=== PATIENT | female | born 1940 | race Caucasian/White ===

== ENCOUNTER → 2016-11-22 | Outpatient (REF) | payer MEDICARE, OTHER ==
[2016-11-22 11:01] LABS: BASOPHILS % (AUTO) 0 % (0-2); EOSINOPHILS # (AUTO) 0.4 10^3uL; EOSINOPHILS % (AUTO) 4 % (0-4); LYMPHOCYTES # (AUTO) 2.6 X10^3; MEAN CORPUSCULAR HGB CONC 32.9 g/dL (31.0-37.0); MEAN CORPUSCULAR VOLUME 80 FL (80-100); MONOCYTES # (AUTO) 0.6 X10^3; MONOCYTES % (AUTO) 6 % (3-11); NEUTROPHILS # (AUTO) 6.1 X10^3; NEUTROPHILS % (AUTO) 63 % (51-67); PLATELET COUNT 249 10^3uL (150-450); WHITE BLOOD COUNT 9.76 10^3uL (4.0-11.0)
[2016-11-22 11:05] LABS: ANION GAP 17.7 MEQ/L (3-15); CALCULATED IONIZED CALCIUM 4.6 mg/dL (3.8-4.6); TOTAL PROTEIN 6.9 g/dL (6.4-8.5)
[2016-11-22 11:06] LABS: ALBUMIN 4.5 g/dL (3.4-5.0)
[2016-11-22 11:16] LABS: MEAN CORPUSCULAR HEMOGLOBIN 26.4 PG (26.0-34.0)
== END ==
LOC: LAB 10:11
PROVIDERS: ATTEND Internal Medicine
DX: Z00.00 Encounter for general adult medical examination without abnormal findings (principal); E11.9 Type 2 diabetes mellitus without complications; I10 Essential (primary) hypertension; F32.89 Other specified depressive episodes
CPT/HCPCS: 80053; 80061; 82043; 82306; 83036; 84443; 85025

== ENCOUNTER → 2016-12-16 | Outpatient (CLI) | payer MEDICARE, OTHER ==
[2016-12-16 18:59] VITALS: BP 128/62
== END ==
LOC: MHUC 18:15
PROVIDERS: ATTEND Nurse Practitioner
DX: J06.9 Acute upper respiratory infection, unspecified (principal)
CPT/HCPCS: 99213

== ENCOUNTER → 2016-12-20 | Outpatient (CLI) | payer MEDICARE, OTHER ==
[2016-12-20 16:46] LABS: BASOPHILS % (AUTO) 0 % (0-2); EOSINOPHILS # (AUTO) 0.4 10^3uL; EOSINOPHILS % (AUTO) 5 % (0-4); LYMPHOCYTES # (AUTO) 2.1 X10^3; MEAN CORPUSCULAR HGB CONC 33.8 g/dL (31.0-37.0); MEAN PLATELET VOLUME 9.2 FL (6.0-9.5); MONOCYTES # (AUTO) 0.9 X10^3; MONOCYTES % (AUTO) 13 % (3-11); NEUTROPHILS # (AUTO) 3.6 X10^3; NEUTROPHILS % (AUTO) 52 % (51-67); PLATELET COUNT 230 10^3uL (150-450); WHITE BLOOD COUNT 6.98 10^3uL (4.0-11.0)
[2016-12-20 16:48] LABS: MEAN CORPUSCULAR HEMOGLOBIN 26.3 PG (26.0-34.0); MEAN CORPUSCULAR VOLUME 78 FL (80-100)
[2016-12-20 17:39] LABS: ANION GAP 15.5 MEQ/L (3-15)
== END ==
LOC: LAB 16:32
PROVIDERS: ATTEND Internal Medicine
DX: R05 Cough (principal); E11.9 Type 2 diabetes mellitus without complications; I10 Essential (primary) hypertension
CPT/HCPCS: 36415; 71020; 80048; 84450; 85025; 86140

== ENCOUNTER → 2017-01-16 | Outpatient (CLI) | payer MEDICARE, OTHER ==
[~2017-01-16] VITALS: Ht 165.1 cm; Wt 68.0 kg
[~2017-01-16] MED LIST: ZOLEDRONIC ACID 5 MG/100 ML 100 ML IV ONE
[2017-01-16 14:16] VITALS: BP 121/65
--- NOTE | 2017-01-16 14:50 | NUR ---
Reclast started via IV at 1415, ended and scanned at 1450
== END ==
LOC: EUOP 13:57
PROVIDERS: ATTEND Internal Medicine
DX: M81.0 Age-related osteoporosis without current pathological fracture (principal)
CPT/HCPCS: 96365; J3489; 36000

== ENCOUNTER → 2017-01-18 | Outpatient (CLI) | payer MEDICARE, OTHER ==
[~2017-01-18] MED LIST changes: -ZOLEDRONIC ACID 5 MG/100 ML 100 ML IV ONE; +methylPREDNISolone 80 MG/ML (DEPO MEDROL) VIAL IM ONE
== END ==
LOC: PMC 11:00
PROVIDERS: ATTEND Internal Medicine
DX: M51.26 Other intervertebral disc displacement, lumbar region (principal); M47.896 Other spondylosis, lumbar region; I11.0 Hypertensive heart disease with heart failure; I50.9 Heart failure, unspecified; J44.9 Chronic obstructive pulmonary disease, unspecified; E11.9 Type 2 diabetes mellitus without complications
CPT/HCPCS: 62323; J1040

== ENCOUNTER → 2017-01-31 | Outpatient (REF) | payer MEDICARE, OTHER | LOC: LAB 13:59 | PROVIDERS: ATTEND Internal Medicine | DX: M81.0 Age-related osteoporosis without current pathological fracture (principal) | CPT/HCPCS: 82306 ==

== ENCOUNTER 2017-02-06 14:04 | Emergency (ER) | payer MEDICARE, OTHER ==
[~2017-02-06] VITALS: Ht 162.6 cm; Wt 72.0 kg
[2017-02-06] MEDS ORDERED: ONDANSETRON 4 MG (ZOFRAN) ORAL DISSOLVE TAB PO ONE (15:15)
[2017-02-06] MEDS ORDERED: HYDROmorphone 1 MG/ML (DILAUDID) SYRINGE IM ONE (15:15)
[2017-02-06 15:58] VITALS: BP 107/47
== END 2017-02-06 15:50 | disposition home or self-care (01) ==
LOC: ED 14:12
DX: S83.8X2A Sprain of other specified parts of left knee, initial encounter (principal); X50.9XXA Other and unspecified overexertion or strenuous movements or postures, initial encounter; Y93.E1 Activity, personal bathing and showering; Y92.002 Bathroom of unspecified non-institutional (private) residence as the place of occurrence of the external cause
CPT/HCPCS: 73502; 73562; 96372; 99283; A9270; J1170

== ENCOUNTER → 2017-03-28 | Outpatient (REF) | payer MEDICARE, OTHER ==
[~2017-03-28] MED LIST changes: +AC325T PO; +AC500T PO; +ACC200C PO; +ACYC400T PO; +ALB0.5V IH; +ALBU2.5V4 IH; +ALBU6.7H INH; +ALN10T PO; +ASP81CT PO; +ASPI-860 PO; +CALC-172 PO; +CALC-72 PO; +CALC-84 PO; +CEFD300C PO; +CHOL500049 PO; +CIPR-273 PO; +CIPR500S2 PO; +CLOP75TA3 PO; +CYAN10006 PO; +CYAN10007 PO; +CYCL10TA45 PO; +CYCL5TAB PO; +DILT180C81 PO; +DILT180C9 PO; +DIVA250T4 PO; +DOCU100C8 PO; +DOXY100T41 PO; +DUONEB 0.5 MG-33 ML IH; +ERGO500037 PO; +FENO145T2 PO; +FLUT1DIS3 IH; +FURO-125 PO; +GABA300C PO; +GBPN100C PO; +HYDR-2997 PO; +HYDR-3702 PO; +HYDR-3708; +HYDR-3881 PO; +INSU100I23 SC; +INSU100I23 SQ; +INSU100I9 SC; +INSU100V2 SQ; +INSU100V32 SC; +INSU100V32 SQ; +LANTUS SOL100 UNIT/1 SQ; +LD5PT TOP; +LEVO500T16 PO; +LEVO750T39 PO; +LIPA1CAP; +LIPA1CAP PO; +LOPE2TAB17 PO; +LORA-404 PO; +LORA0.5T PO; +LORA1TAB PO; +LRT10T PO; +MAGN400O7 PO; +MECL-115 PO; +MELA1TAB10 PO; +METAMUCIL POWD283 GM PO; +METO25TA2 PO; +MUCINEX PO; +NITR0.4T SL; +NITR0.4T7 SL; +NITR100C PO; +NITR100C3 PO; +NTR.4SL SL; +ONDA4TAB8 PO; +ONDAN4ODT PO; +ONDN4T PO; +ORPH100T PO; +OXYC1TAB6 PO; +OXYC1TAB87 PO; +PAMI30VI8 SC; +PAMI30VI8 SQ; +PANT40TA2 PO; +PANT40TA3 PO; +PHEN30TA37 PO; +POLY17PO2 PO; +POTA10CA43 PO; +POTA10TA6 PO; +PRAM0.12 PO; +PRAM0.373 PO; +PRM25T PO; +PROM25SU10 PR; +PSYL0.5211 PO; +ROSU10TA PO; +SERT50TA2 PO; +SPIR25TA PO; +SPIR50TA PO; +SPRN25T PO; +TIOT18CA IH; +TRAM-25 PO; +TRAM-291ED; +TRM50T PO; +VIT B-12 PO; +[UNRECOGNIZED DRUG - CODE] PO; +[UNRECOGNIZED DRUG - CODE] PO; +[UNRECOGNIZED DRUG - CODE] PO; +[UNRECOGNIZED DRUG - CODE] PO; +[UNRECOGNIZED DRUG - CODE] PO; -methylPREDNISolone 80 MG/ML (DEPO MEDROL) VIAL IM ONE
[2017-03-28 11:29] LABS: BASOPHILS % (AUTO) 0 % (0-2); EOSINOPHILS # (AUTO) 0.4 10^3uL; EOSINOPHILS % (AUTO) 4 % (0-4); LYMPHOCYTES # (AUTO) 2.1 X10^3; MEAN CORPUSCULAR VOLUME 82 FL (80-100); MEAN PLATELET VOLUME 9.7 FL (6.0-9.5); MONOCYTES # (AUTO) 0.5 X10^3; MONOCYTES % (AUTO) 6 % (3-11); NEUTROPHILS # (AUTO) 6.2 X10^3; NEUTROPHILS % (AUTO) 67 % (51-67); PLATELET COUNT 284 10^3uL (150-450); WHITE BLOOD COUNT 9.21 10^3uL (4.0-11.0)
[2017-03-28 11:31] LABS: MEAN CORPUSCULAR HGB CONC 31.6 g/dL (31.0-37.0)
[2017-03-28 11:46] LABS: ALBUMIN 4.8 g/dL (3.4-5.0); ALKALINE PHOSPHATASE 67 U/L (38-126); ANION GAP 18.9 MEQ/L (3-15); BUN/CREATININE RATIO 33 (10-20); CALCULATED IONIZED CALCIUM 4.6 mg/dL (3.8-4.6)
== END ==
LOC: LAB 11:15
PROVIDERS: ATTEND Internal Medicine
DX: I25.10 Atherosclerotic heart disease of native coronary artery without angina pectoris (principal); I10 Essential (primary) hypertension; M17.12 Unilateral primary osteoarthritis, left knee
CPT/HCPCS: 80053; 84443; 85025; 86140

== ENCOUNTER → 2017-03-30 | Outpatient (REF) | payer MEDICARE, OTHER ==
[2017-03-30 14:19] LABS: ALBUMIN 4.8 g/dL (3.4-5.0); ANION GAP 19.3 MEQ/L (3-15)
== END ==
LOC: LAB 13:51
PROVIDERS: ATTEND Internal Medicine
DX: E83.52 Hypercalcemia (principal)
CPT/HCPCS: 80069; 82306